=== PATIENT | female | born 1955 | race Caucasian/White ===

== ENCOUNTER 2017-03-07 13:31 | Emergency (ER) | payer OTHER ==
[~2017-03-07] VITALS: Ht 160 cm; Wt 77.3 kg
[~2017-03-07 13:31] MED LIST: BLAC40TA4 PO; FEXO180T85 PO; FLUT16SP2 NS; FOLI1TAB18 PO; LANS30CA15 PO; OXYC10TA8 PO; TIZA4TAB PO; TRIA0.1220 PO; VENL225T3 PO; WARF1TAB6 PO; WARF5TAB7 PO
[2017-03-07 14:03] VITALS: BP 133/76; PULSE 72; RESP 16; O2SAT 99
[2017-03-07 14:53] LABS: BASOPHILS % (AUTO) 0.1 % (0-3); MONOCYTES % (AUTO) 4.3 % (4-12); Mean Corpuscular Hemoglobin 32.7 pg (27.0-35.0); Mean Corpuscular Volume 99.7 fL (81-100); NEUTROPHILS % (AUTO) 70.6 % (40-74); Platelet Count 248 bil/L (150-400)
[2017-03-07 15:09] LABS: Magnesium 1.9 mg/dL (1.6-2.6)
--- NOTE | 2017-03-07 15:35 | ED.REPORT ---
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 Associated sx include mild epigastric pain, decreased appetite and generalized weakness. The pt associates her sx with heartburn. She denies constipation, diarrhea, vomiting, fever, dysuria, hematochezia, hematemesis, melena, and hematuria. Nursing Notes Stated Complaint: NAUSEA/WEAKNESS/UC Chief Complaint: Female Abdominal Pain Nursing Notes Reviewed: Yes ([place], [place] not reconciled) Allergies: Coded Allergies: gabapentin (Verified Allergy, Severe, 02/08/16) leg cramps per h&p TAPE (Verified Allergy, Mild, hives, 02/08/16) codeine (Verified Adverse Reaction, Mild, N/V, 02/08/16) Scheduled Black Cohosh (Black Cohosh) 40 Mg Tablet 40 MG PO DAILY Fexofenadine (Elsa Allergy) 180 Mg Tablet 180 MG PO DAILY Fluticasone Propionate (Flonase Nasal) 16 Gm [place].susp 2 SPRAYS NS BID Folic Acid (Folic Acid) 1 Mg Tablet 1 MG PO DAILY Lansoprazole DR (Prevacid) 30 Mg Capsule 30 MG PO DAILY Sucralfate Susp (Carafate Susp) 1 Gm/10 Ml Oral.susp 1 GM PO TID Tizanidine (Zanaflex) 4 Mg Tablet 4 MG PO HS Venlafaxine ER (Venlafaxine ER) 225 Mg Tab.er.24 225 MG PO DAILY Warfarin Sodium (Warfarin Sodium) 5 Mg Tablet 5 MG PO DAILY Warfarin Sodium (Warfarin Sodium) 1 Mg Tablet 1 MG PO DAILY Scheduled PRN Prochlorperazine Maleate (Prochlorperazine) 10 Mg Tablet 10 MG PO Q6H PRN PRN For Nausea Triazolam (Triazolam) 0.125 Mg Tablet 0.125 MG PO HS PRN PRN For Sleep oxyCODONE (oxyCODONE) 10 Mg Tablet 10 MG PO QID PRN PRN For Pain General Time Seen by MD: 15:25 Chief Complaint Other (nausea) Hx Obtained From: Patient Arrived By: Walk-in Sudden in Onset?: Yes Onset Occurred: 3 days ago Symptom Duration: Since onset Location: : Epigastric Quality: Painful Radiation: : Does not radiate Severity: Current: Mild Severity: Maximum: Mild Recent Healthcare: Recent doctor visit Past Medical History Past Medical History Dupuytren's contracture of both hands Osteoarthritis of caropmetacarpal joint of left thumb Fibromyalgia Trochanteric bursitis Osteoarthropathy Lumbago with sciatica Depression and anxiety Lumbar spinal stenosis Breast cancer (s/p right lumpectomy) On Coumadin for a herditary blood clot disorder Past Surgical History Reports: Appendectomy Smoking History Unknown if Ever Smoker Ambulatory Status Independent Review of Systems Reports: decreased appetite Constitutional: Denies: Fever GI: Reports: Abdominal pain, Nausea, Denies: Constipation, Diarrhea, Hematemesis, Hematochezia, Melena, Vomiting Female: Denies: Dysuria, Hematuria Complete sys rev & neg: except as marked. Physical Exam Vital Signs Vital Signs (First) Date Time Temp Pulse Resp B/P Pulse Ox O2 Delivery O2 Flow Rate FiO2 03/07/17 14:03 36.2 72 16 133/76 99 Initial VS: Reviewed, Vital signs normal Head / Eyes: Atraumatic, Normocephalic Neck: Supple, Non-tender, Full range of motion Extremities: Vascular intact, Neuro intact, No swelling, No tenderness Skin: Warm, Dry, No cyanosis Neurologic: Alert, Oriented, Nonfocal General/Constitutional: Awake, Alert, No acute distress, Cooperative Appears fatigued Respiratory / Chest: Atraumatic, Breath sounds NL, Breath sounds = bilat, No respiratory distress, No rales, No rhonchi, No wheezing Cardiovascular: Heart rate NL, Regular rhythm, Heart sounds NL, No gallop, No murmurs, No rubs Abdomen: Atraumatic, Soft, Non-tender, No guarding, No rebound Back: Atraumatic, Full range of motion, Painless range of motion Interpretation & Diagnostics Lab Results Interpretation Result Diagram: 03/07/17 1440 03/07/17 1440 Test 03/07/17 14:40 03/07/17 16:59 White Blood Count 6.9th/mm3 (3.8-10.1) Red Blood Count 3.79mil/mm3 (3.90-5.20) Hemoglobin 12.4g/dL (12.0-15.6) Hematocrit 37.8% (35.0-46.0) Mean Corpuscular Volume 99.7fL (81-100) Mean Corpuscular Hemoglobin 32.7pg (27.0-35.0) Mean Corpuscular Hemoglobin Concent 32.8% (32.0-37.0) Red Cell Distribution Width 14.9% (12.3-15.4) Platelet Count 248bil/L (150-400) Neutrophils (%) (Auto) 70.6% (40-74) Lymphocytes (%) (Auto) 23.9% (14-46) Monocytes (%) (Auto) 4.3% (4-12) Eosinophils (%) (Auto) 1.0% (0-5) Basophils (%) (Auto) 0.1% (0-3) Prothrombin Time 15.0sec (8.1-12.5) Prothromb Time International Ratio 1.39ratio Sodium Level 141mEq/L (134-144) Potassium Level 4.5mEq/L (3.5-5.2) Chloride Level 103mEq/L (97-108) Carbon Dioxide Level 25mmol/L (18-29) Blood Urea Nitrogen 17mg/dL (8-27) Creatinine 0.75mg/dL (0.57-1.00) Estimat Glomerular Filtration Rate 112mL/min (>59) Glucose Level 96mg/dL (60-99) Lactic Acid Level 0.6mmol/L (0.4-2.0) Calcium Level 9.7mg/dL (8.5-10.1) Magnesium Level 1.9mg/dL (1.6-2.6) Total Bilirubin 0.2mg/dL (0.0-1.2) Aspartate Amino Transf (AST/SGOT) 23U/L (0-50) Alanine Aminotransferase (ALT/SGPT) 40U/L (0-32) Alkaline Phosphatase 76U/L (25-165) Total Protein 7.8g/dL (6.4-8.4) Albumin 4.2g/dL (3.4-5.0) Lipase 12U/L (13-60) Hold Urine Received (Received) Lab Results Interpretation: CBC normal CMP normal INR subtherapeutic Urine dipped negative Re-Eval/Medical Decision Med Decision/Clinical Course This is a pleasant 61-year-old female on warfarin with a history of gastric ulcers on Prevacid who presents complaining of a sense of generalized weakness, and increasing reflux symptoms with the concern that her gastric ulcers are acting up, she has moderate nausea as well. She denies any hematemesis, melena , or GI blood loss. Fevers or chills. She has no additional complaints. On exam she has normal vitals, she is fatigued appearing, but nontoxic and has a nontender abdomen. Blood work is normal with no anemia, no leukocytosis. The patient received Zofran without much change and nausea received Phenergan with improvement. She received Carafate which she thought helped considerably, and received an extra dose of famotidine. This point and not finding a clear-cut dangerous etiology. The patient states this is her exact symptoms she had with her previous gastritis, she describes clear reflux components. There are no exertional or respiratory components to suggest a cardiopulmonary etiology. Labs are reassuring, the patient's subtherapeutic-the patient does describe a history of gastric ulcers that are endoscopy proved, I think is reasonable to delay aggressive we and coagulation for her chronic A. fib while allowing her to make sure she is on maximal PPI therapy, I do initiated Carafate, and provided some nausea medicine. I recommended close follow-up. Patient's comfortable with this and wishes to be discharged home. She would prefer prochlorperazine for her nausea. Routine and return precautions reviewed. Patient discharged in good condiiton. Source of Hx: Old records Re-Evaluation/Progress : Time of Eval: 17:19 Re-Evaluation/Progress Note: Rechecked pt. Discussed lab and imaging result and diagnosis and plan to discharge. Pt understands and agrees with the plan. All questions answered. F/U and RTER given. Differential Diagnosis: Positive: Gastritis, Negative: Abdominal aortic aneurysm, Acute abdominal pain, Cholangitis, Cholecystitis, Cholelithiasis, Ectopic , Endometriosis, Esophageal rupture, Myocardial infarction, Sexually transmit disease, Stab wound abdomen, Unstable angina, Urinary obstruction, Urinary tract infection, Volvulus Counseled Regarding: Diagnosis Discharge & Departure Primary Impression: Gastritis Gastritis type: unspecified gastritis Chronicity: chronic Gastritis bleeding: without bleeding Qualified Code: K29.50 - Unspecified chronic gastritis without bleeding Additional Impressions: Generalized weakness Nausea Disposition: Home Discharge Condition All VS Reviewed: Yes Condition: Stable Additional Instructions: 1. Your blood tests in the emergency department were normal-no anemia, or markers of a dangerous infection or process. 2. Sure you are taking 30 mg of prevacid a day. 3. Take Carafate 30 minutes before meals 3 times a day. 4. Try prochlorperazine (Compazine) 10 mg up to every 6 hours if needed for nausea. Note this may cause some slight drowsiness. 6. Your INR/Coumadin level was low today at 1.30. I would not make an adjustment at this time given the symptoms raise the concern for stomach ulcers and I want to give them some time with the medicine to heal - but I do want you to follow-up with INR clinic for recheck and adjustment. 7. Return if new or worsening symptoms occur Referrals: Natanael Clements MD (PCP) Scribe Attestation Portions of this note were transcribed by Marleny Hanson. I,, personally performed the history,physical exam and medical decision-making;I reviewed and confirmed the accuracy of the information in the transcribed note. Signed by Holger Carranza. 03/07/17 copies to: Natanael Clements MD, Matthew F MD Mar 07, 2017 15:35 Marleny Hanson Mar 07, 2017 15:57
[2017-03-07] MEDS ORDERED: Ondansetron 2 mg/mL 2 mL Inj IVPUSH ONE (15:40)
[2017-03-07] MEDS ORDERED: 0.9% Sodium Chloride 1,000 ML IV ONE (15:40)
[2017-03-07] MEDS ORDERED: Famotidine Inj 20 MG in IV Premix 1 EACH IV ONE (15:40)
[2017-03-07] MEDS ORDERED: Sucralfate 1,000 mg Tablet PO ONE (15:40)
[2017-03-07 15:47] LABS: INR 1.39 ratio
[2017-03-07] MEDS ORDERED: oxyCODONE-Acetamin 10-325 mg Tablet PO ONE (15:55)
[2017-03-07] MEDS ORDERED: Promethazine Inj 25 MG in Dextrose 5%-Pha MIX 50 ML IV ONE (17:00)
[2017-03-07] MEDS ORDERED: PROC10TA PO (17:26)
[2017-03-07] MEDS ORDERED: SUCR1ORA2 PO (17:26)
== END 2017-03-07 17:36 | disposition home or self-care (01) ==
LOC: SED 13:31
DX: K29.50 Unspecified chronic gastritis without bleeding (principal); M79.7 Fibromyalgia; F41.8 Other specified anxiety disorders; Z85.3 Personal history of malignant neoplasm of breast; Z90.89 Acquired absence of other organs; Z98.890 Other specified postprocedural states; Z79.01 Long term (current) use of anticoagulants; Z88.5 Allergy status to narcotic agent; Z88.8 Allergy status to other drugs, medicaments and biological substances; Z91.048 Other nonmedicinal substance allergy status
CPT/HCPCS: 36415; 80053; 83605; 83690; 83735; 85025; 85610; 96361; 96374; 96375; 99285; J2405; J3490; J7030